=== PATIENT | female | born 1980 | race Caucasian/White ===

== ENCOUNTER 2021-01-23 08:09 | Emergency (ER) | payer BC ==
[~2021-01-23] VITALS: Ht 162.6 cm; Wt 59.0 kg
[2021-01-23] MEDS ORDERED: VITAMIN D-40010 MCG PO (08:29)
[2021-01-23] MEDS ORDERED: CHLORTHALIDONE50 MG PO (08:29)
[2021-01-23] MEDS ORDERED: XYZAL5 MG PO (08:29)
[2021-01-23] MEDS ORDERED: ASA81BEC PO (08:30)
[2021-01-23] MEDS ORDERED: ZPAK PO (09:10)
[2021-01-23 09:31] VITALS: BP 140/90
== END 2021-01-23 09:31 | disposition home or self-care (01) ==
LOC: M.ERS 08:09
DX: H66.93 Otitis media, unspecified, bilateral (principal); Z20.822 Contact with and (suspected) exposure to COVID-19; F32.9 Major depressive disorder, single episode, unspecified; F41.9 Anxiety disorder, unspecified; Z90.49 Acquired absence of other specified parts of digestive tract; Z79.2 Long term (current) use of antibiotics; Z79.82 Long term (current) use of aspirin; Z79.899 Other long term (current) drug therapy; Z88.6 Allergy status to analgesic agent; Z88.5 Allergy status to narcotic agent; Z88.1 Allergy status to other antibiotic agents